=== PATIENT | female | born 1960 | race Hispanic/Latino ===

== ENCOUNTER 2018-12-02 20:50 | Observation (INO) | payer SELFPAY ==
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
[2018-12-02 21:58] LABS: Basophils % (Auto) 0.4 % (0.0-1.8); Eosinophils # (Auto) 0.1 K/mm3 (0.0-0.4); Eosinophils % (Auto) 0.7 % (0.0-4.3); Hematocrit 42.4 % (30.3-42.9); Hemoglobin 14.7 gm/dl (10.1-14.3); Lymphocytes # (Auto) 1.6 K/mm3 (1.2-5.4); Lymphocytes % (Auto) 14.8 % (13.4-35.0); Mean Corpuscular HGB Conc 35 % (30-34); Mean Corpuscular Volume 91 fl (79-97); Monocytes # (Auto) 0.7 K/mm3 (0.0-0.8); Platelet Count 389 K/mm3 (140-440); Red Blood Count 4.66 M/mm3 (3.65-5.03); Red Cell Distribution Width 13.2 % (13.2-15.2)
[2018-12-02 22:15] LABS: Alanine Aminotransferase 20 units/L (7-56); Albumin 4.5 g/dL (3.9-5); BUN/Creatinine Ratio 16; Blood Urea Nitrogen 11 mg/dL (7-17); Calcium 9.6 mg/dL (8.4-10.2); Hemolysis Index 10
--- NOTE | 2018-12-02 23:25 | Cat Scan Report ---
PROCEDURE: CT ABDOMEN PELVIS WO CON TECHNIQUE: Computerized axial tomography of the abdomen and pelvis was performed without intravenous contrast. This study is performed without intravascular contrast material and its sensitivity for ab dominal and pelvic pathology, including neoplasms, inflammation, abscess, free fluid, thrombosis, art erial dissection and infarction, is reduced compared with a contrast enhanced study. CT DOSE LENGTH PRODUCT: 1145 mGycm HISTORY: diffuse abdominal pain, r/o obstruction COMPARISONS: None . FINDINGS: Visualized lower thorax: No significant abnormality. Liver: Normal size and attenuation. Spleen: Normal size and attenuation. Gallbladder and biliary system: Normal. Pancreas: Normal. Adrenals: There is a 8 mm area of hypoattenuation on the left adrenal gland, adenoma is suspected. Kidneys: There is an area of hypoattenuation off the posterior left renal cortex, a complicated cyst in this region is suspected. This area is not fully evaluated. No hydronephrosis is seen.. GI tract: The stomach is normal. A small hiatal hernia is identified. Small bowel has normal caliber without obstruction. Cecum and appendix are normal. There is moderate fecal debris throughout the co silas. There is bowel wall thickening with diverticular change and streaking of the mesenteric fat in t he region of the sigmoid colon. Diverticulitis is noted. Underlying pathology in this area is not com pletely excluded. Recheck study after completing therapy would be warranted. No formed abscess or shayan e air is seen. No evidence of bowel obstruction. . Lymph nodes and mesentery: Normal. Vasculature: Normal.. Bladder: Normal. Reproductive organs: No pelvic masses. Peritoneum: Minimal fluid in the lower pelvis.. Musculoskeletal structures: No significant abnormality. Other: None. IMPRESSION: Moderate diverticulitis of the sigmoid colon. No complication at this time. Recheck stud y after completing therapy may be appropriate as discussed. There is no evidence of intestinal or urinary tract obstruction. The appendix is normal. Complicated 1 cm cyst off the posterior left renal cortex is suspected. A 8 mm left adrenal adenoma i s suspected. Minimal fluid in the lower pelvis. No pelvic masses. . This document is electronically signed by Leila Gilman DO., December 02 2018 11:23:43 PM ET
[2018-12-03] MEDS ORDERED: ZOFRAN IV ONE (01:15)
[2018-12-03] MEDS ORDERED: MORPHINE IV ONE (01:15)
[2018-12-03] MEDS ORDERED: ZOSYN/NS 4.5GM/100ML 4.5 GM/100 ML VIAL IV ONE (01:15)
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
[2018-12-03 02:40] LABS: Bacteria,Urine 3+ /HPF (Negative); Bilirubin,Urine NEG (Negative); Blood,Urine NEG (Negative); Color,Urine Amber (Yellow); Hyaline Casts,Urine 4 /LPF; Mucus,Urine 1+ /HPF; Protein,Urine <15 mg/dL mg/dL (Negative)
[2018-12-03] MEDS ORDERED: PERCOCET 5/325 PO PRN (02:40)
[2018-12-03] MEDS ORDERED: SODIUM CHLORIDE FLUSH SYRINGE 10 ML IV PRN (02:40)
[2018-12-03] MEDS ORDERED: TYLENOL PO PRN (02:40)
[2018-12-03] MEDS ORDERED: PHENERGAN PR PRN (02:40)
[2018-12-03] MEDS ORDERED: APRESOLINE IV PRN (02:43)
--- NOTE | 2018-12-03 03:38 | History and Physical Report ---
History of Present Illness Date of examination: 12/03/18 Date of admission: 12/03/18 Chief complaint: Generalized abdominal pain History of present illness: Patient is a 58-year-old female with history of atrial fibrillation and hypertension who presented to the ED on account of 2 days history of generalized abdominal pain. She described it as sharp in character, nonradiating, rated 10 over 10 and constant in duration. No known aggravating or relieving factors. She has associated nausea with vomiting, constipation, chills without fever, intermittent chest pain and dry cough. She denies palpitation, diaphoresis, leg swelling, orthopnea, PND, sore throat, runny nose or congestion. No headaches, lightheadedness, syncope or loss of consciousness. Her last colonoscopy was in 2014 which was normal Past History Past Medical History: GERD, hypertension, hyperlipidemia, hypothyroidism, other (atrial fibrillation) Past Surgical History: Other (lower back surgery) Social history: other (patient is an ex-cigarette smoker. She smoked for 30 years but quit 4 months ago. She admits to occasional alcohol use but denies illicit drug use) Family history: other (reviewed and noncontributory) Medications and Allergies Allergies Allergy/AdvReac Type Severity Reaction Status Date / Time IV contrast Allergy Anaphylaxis Uncoded 12/02/18 21:21 steroids Allergy Unknown Uncoded 12/02/18 21:21 Active Meds: Active Medications Acetaminophen (Tylenol) 650 mg PO Q4H PRN PRN Reason: Pain MILD(1-3)/Fever >100.5/RUFFIN Famotidine (Pepcid) 20 mg IV BID GREGORIO Hydralazine HCl (Apresoline) 20 mg IV Q4H PRN PRN Reason: Blood Pressure Hydromorphone HCl (Dilaudid) 1 mg IV Q3H PRN PRN Reason: Pain , Severe (7-10) Levofloxacin/Dextrose (Levaquin 750mg/150ml) 750 mg in 150 mls @ 100 mls/hr IV Q24HR GREGORIO; Protocol Metronidazole (Flagyl 500 Mg/100 Ml) 500 mg in 100 mls @ 100 mls/hr IV Q8HR GREGORIO; Protocol Ondansetron HCl (Zofran) 4 mg IV Q6H PRN PRN Reason: Nausea And Vomiting Oxycodone/Acetaminophen (Percocet 5/325) 1 tab PO Q4H PRN PRN Reason: Pain, Moderate (4-6) Promethazine HCl (Phenergan) 25 mg MT Q6H PRN PRN Reason: N/V IF NPO AND NO IV ACCESS Sodium Chloride (Sodium Chloride Flush Syringe 10 Ml) 10 ml IV BID GREGORIO Sodium Chloride (Sodium Chloride Flush Syringe 10 Ml) 10 ml IV PRN PRN PRN Reason: LINE FLUSH Zolpidem Tartrate (Ambien) 5 mg PO QHS PRN PRN Reason: Insomnia Review of Systems All systems: negative (except as documented in the HPI, all other systems were reviewed and negative) Exam - Constitutional Vitals: Temp Pulse Resp BP Pulse Ox 97.7 F 87 16 163/98 93 12/03/18 00:29 12/03/18 02:50 12/03/18 02:50 12/03/18 02:50 12/03/18 02:50 General appearance: Present: no acute distress, well-nourished - EENT Eyes: Present: PERRL, EOM intact ENT: hearing intact, clear oral mucosa - Neck Neck: Present: supple, normal ROM - Respiratory Respiratory effort: normal Respiratory: bilateral: CTA - Cardiovascular Rhythm: regular Heart Sounds: Present: S1 & S2. Absent: rub, click - Extremities Extremities: No edema Peripheral Pulses: within normal limits - Abdominal General gastrointestinal: Present: soft, tender (generalized), non-distended, normal bowel sounds Female genitourinary: Present: deferred - Integumentary Integumentary: Present: clear, warm, dry - Musculoskeletal Musculoskeletal: gait normal, strength equal bilaterally - Psychiatric Psychiatric: appropriate mood/affect, intact judgment & insight - Neurologic Neurologic: CNII-XII intact, moves all extremities Results - Labs CBC & Chem 7: 12/02/18 21:38 12/02/18 21:38 Labs: Laboratory Last Values WBC 11.0 K/mm3 (4.5-11.0) 12/02/18 21:38 RBC 4.66 M/mm3 (3.65-5.03) 12/02/18 21:38 Hgb 14.7 gm/dl (10.1-14.3) H 12/02/18 21:38 Hct 42.4 % (30.3-42.9) 12/02/18 21:38 MCV 91 fl (79-97) 12/02/18 21:38 MCH 32 pg (28-32) 12/02/18 21:38 MCHC 35 % (30-34) H 12/02/18 21:38 RDW 13.2 % (13.2-15.2) 12/02/18 21:38 Plt Count 389 K/mm3 (140-440) 12/02/18 21:38 Lymph % (Auto) 14.8 % (13.4-35.0) 12/02/18 21:38 [place] % (Auto) 6.0 % (0.0-7.3) 12/02/18 21:38 Eos % (Auto) 0.7 % (0.0-4.3) 12/02/18 21:38 Baso % (Auto) 0.4 % (0.0-1.8) 12/02/18 21:38 Lymph # 1.6 K/mm3 (1.2-5.4) 12/02/18 21:38 [place] # 0.7 K/mm3 (0.0-0.8) 12/02/18 21:38 Eos # 0.1 K/mm3 (0.0-0.4) 12/02/18 21:38 Baso # 0.0 K/mm3 (0.0-0.1) 12/02/18 21:38 Seg Neutrophils % 78.1 % (40.0-70.0) H 12/02/18 21:38 Seg Neutrophils # 8.5 K/mm3 (1.8-7.7) H 12/02/18 21:38 Sodium 142 mmol/L (137-145) 12/02/18 21:38 Potassium 4.1 mmol/L (3.6-5.0) 12/02/18 21:38 Chloride 105.2 mmol/L (98-107) 12/02/18 21:38 Carbon Dioxide 25 mmol/L (22-30) 12/02/18 21:38 Anion Gap 16 mmol/L 12/02/18 21:38 BUN 11 mg/dL (7-17) 12/02/18 21:38 Creatinine 0.7 mg/dL (0.7-1.2) 12/02/18 21:38 Estimated GFR > 60 ml/min 12/02/18 21:38 BUN/Creatinine Ratio 16 % 12/02/18 21:38 Glucose 155 mg/dL (65-100) H 12/02/18 21:38 Calcium 9.6 mg/dL (8.4-10.2) 12/02/18 21:38 Total Bilirubin 0.40 mg/dL (0.1-1.2) 12/02/18 21:38 AST 17 units/L (5-40) 12/02/18 21:38 ALT 20 units/L (7-56) 12/02/18 21:38 Alkaline Phosphatase 93 units/L (35-129) 12/02/18 21:38 Total Protein 7.4 g/dL (6.3-8.2) 12/02/18 21:38 Albumin 4.5 g/dL (3.9-5) 12/02/18 21:38 Albumin/Globulin Ratio 1.6 % 12/02/18 21:38 Urine Color [place] (Yellow) 12/03/18 01:57 Urine Turbidity Cloudy (Clear) 12/03/18 01:57 Urine pH 7.0 (5.0-7.0) 12/03/18 01:57 Ur Specific [place] 1.018 (1.003-1.030) 12/03/18 01:57 Urine Protein <15 mg/dl mg/dL (Negative) 12/03/18 01:57 Urine Glucose (UA) Neg mg/dL (Negative) 12/03/18 01:57 Urine Ketones Tr mg/dL (Negative) 12/03/18 01:57 Urine Blood Neg (Negative) 12/03/18 01:57 Urine Nitrite Neg (Negative) 12/03/18 01:57 Urine Bilirubin Neg (Negative) 12/03/18 01:57 Urine Urobilinogen 4.0 mg/dL (<2.0) 12/03/18 01:57 Ur Leukocyte Esterase Neg (Negative) 12/03/18 01:57 Urine WBC (Auto) 8.0 /HPF (0.0-6.0) H 12/03/18 01:57 Urine RBC (Auto) 1.0 /HPF (0.0-6.0) 12/03/18 01:57 U Epithel Cells (Auto) 1.0 /HPF (0-13.0) 12/03/18 01:57 Urine Bacteria (Auto) 3+ /HPF (Negative) 12/03/18 01:57 Urine WBC Clumps 2+ /HPF 12/03/18 01:57 Hyaline Casts 4 /LPF 12/03/18 01:57 Urine Mucus 1+ /HPF 12/03/18 01:57 Urine Yeast (Budding) 3+ /HPF 12/03/18 01:57 Assessment and Plan Assessment and plan: Acute sigmoid diverticulitis without complications -CT abdomen/pelvis showed moderate diverticulitis of the sigmoid colon -On nothing by mouth and IV antibiotics with levofloxacin and Flagyl UTI -On IV antibiotics -Urine culture pending Hypertension -Uncontrolled -On antihypertensives Hyperglycemia -Hemoglobin A1c level pending History of Atrial fibrillation -Heart rate controlled -Resume home oral anticoagulation when available Hypothyroidism -Resume home medication when available Hyperlipidemia -Resume home medication when available GERD -On IV famotidine Disposition: For discharge when medically stable Time spent: 38 minutes
[2018-12-03] MEDS: PEPCID IV SCH ×3 (04:44→21:12)
[2018-12-03] MEDS: ZOFRAN IV PRN ×2 (05:07→11:48)
[2018-12-03] MEDS: FLAGYL 500 MG/100 ML 500 MG/100 ML BAG IV SCH ×3 (05:08→21:12)
[2018-12-03] MEDS: LEVAQUIN 750MG/150ML 750 MG/150 ML BAG IV SCH (10:53)
[2018-12-03] MEDS: SODIUM CHLORIDE FLUSH SYRINGE 10 ML IV SCH ×2 (10:53→21:12)
[2018-12-03] MEDS: DILAUDID IV PRN (11:48)
[2018-12-03] MEDS ORDERED: AFLURIA QUAD 2018-2019 SYRINGE IM ONE (12:00)
--- NOTE | 2018-12-03 17:35 | Progress Note ---
Assessment and Plan Assessment and plan: Patient is a 58 yo woman with a history of GERD, hypertension, hyperlipidemia, hypothyroidism, and atrial fibrillation who presented with abdominal pains. * CT abd/pelvis without contrast IMPRESSION: Moderate diverticulitis of the sigmoid colon. No complication at this time. Recheck study after completing therapy may be appropriate as discussed. There is no evidence of intestinal or urinary tract obstruction. The appendix is normal. Complicated 1 cm cyst off the posterior left renal cortex is suspected. A 8 mm left adrenal adenoma is suspected. Minimal fluid in the lower pelvis. No pelvic masses Acute sigmoid diverticulitis without complications -CT abdomen/pelvis showed moderate diverticulitis of the sigmoid colon -On nothing by mouth and IV antibiotics with levofloxacin and Flagyl UTI -On IV antibiotics -Urine culture pending Hypertension -Uncontrolled -On antihypertensives Hyperglycemia -Hemoglobin A1c 5.3 History of Atrial fibrillation -Heart rate controlled -Resume home oral anticoagulation when available Hypothyroidism -Resume home medication when available Hyperlipidemia -Resume home medication when available GERD -On IV famotidine Disposition: continue inpatient care, For discharge when medically stable History Interval history: Patient was seen and examined. Follow-up on current diagnosis of abd pains. Overnight uneventful. Patient denies any chest pain, shortness breath, nausea/vomiting or severe headaches. Imaging, nursing note, chart, labs and old chart reviewed. Discussed with patient. Hospitalist Physical - Physical exam Narrative exam: Gen: WDWN, NAD, Awake, Alert, Orientated HEENT: NCAT, EOMI, PERRL, OP Clear Neck: supple, no adenopathy, no thyromegaly, no JVD CVS/Heart: RRR, normal S1S2, pulses present bilaterally Chest/Lungs: CTA B, Symmetrical chest expansion, good air entry bilaterally GI/Abdomen: soft, diffuse tenderness, good bowel sounds, no guarding or rebound /Bladder: +suprapubic tenderness, no CVA or paraspinal tenderness Extermity/Skin: no c/c/e, no obvious rash MSK: FROM x 4 Neuro: CN 2-12 grossly intact, no new focal deficits Psych: calm - Constitutional Vitals: Temp Pulse Resp BP Pulse Ox 97.8 F 78 15 153/87 96 12/03/18 15:40 12/03/18 15:40 12/03/18 15:40 12/03/18 15:40 12/03/18 15:40 General appearance: Present: no acute distress, well-nourished Results - Labs CBC & Chem 7: 12/02/18 21:38 12/02/18 21:38 Labs: Laboratory Last Values WBC 11.0 K/mm3 (4.5-11.0) 12/02/18 21:38 RBC 4.66 M/mm3 (3.65-5.03) 12/02/18 21:38 Hgb 14.7 gm/dl (10.1-14.3) H 12/02/18 21:38 Hct 42.4 % (30.3-42.9) 12/02/18 21:38 MCV 91 fl (79-97) 12/02/18 21:38 MCH 32 pg (28-32) 12/02/18 21:38 MCHC 35 % (30-34) H 12/02/18 21:38 RDW 13.2 % (13.2-15.2) 12/02/18 21:38 Plt Count 389 K/mm3 (140-440) 12/02/18 21:38 Lymph % (Auto) 14.8 % (13.4-35.0) 12/02/18 21:38 [place] % (Auto) 6.0 % (0.0-7.3) 12/02/18 21:38 Eos % (Auto) 0.7 % (0.0-4.3) 12/02/18 21:38 Baso % (Auto) 0.4 % (0.0-1.8) 12/02/18 21:38 Lymph # 1.6 K/mm3 (1.2-5.4) 12/02/18 21:38 [place] # 0.7 K/mm3 (0.0-0.8) 12/02/18 21:38 Eos # 0.1 K/mm3 (0.0-0.4) 12/02/18 21:38 Baso # 0.0 K/mm3 (0.0-0.1) 12/02/18 21:38 Seg Neutrophils % 78.1 % (40.0-70.0) H 12/02/18 21:38 Seg Neutrophils # 8.5 K/mm3 (1.8-7.7) H 12/02/18 21:38 Sodium 142 mmol/L (137-145) 12/02/18 21:38 Potassium 4.1 mmol/L (3.6-5.0) 12/02/18 21:38 Chloride 105.2 mmol/L (98-107) 12/02/18 21:38 Carbon Dioxide 25 mmol/L (22-30) 12/02/18 21:38 Anion Gap 16 mmol/L 12/02/18 21:38 BUN 11 mg/dL (7-17) 12/02/18 21:38 Creatinine 0.7 mg/dL (0.7-1.2) 12/02/18 21:38 Estimated GFR > 60 ml/min 12/02/18 21:38 BUN/Creatinine Ratio 16 % 12/02/18 21:38 Glucose 155 mg/dL (65-100) H 12/02/18 21:38 Hemoglobin A1c 5.3 % (4-6) 12/03/18 05:00 Calcium 9.6 mg/dL (8.4-10.2) 12/02/18 21:38 Total Bilirubin 0.40 mg/dL (0.1-1.2) 12/02/18 21:38 AST 17 units/L (5-40) 12/02/18 21:38 ALT 20 units/L (7-56) 12/02/18 21:38 Alkaline Phosphatase 93 units/L (35-129) 12/02/18 21:38 Total Protein 7.4 g/dL (6.3-8.2) 12/02/18 21:38 Albumin 4.5 g/dL (3.9-5) 12/02/18 21:38 Albumin/Globulin Ratio 1.6 % 12/02/18 21:38 Urine Color [place] (Yellow) 12/03/18 01:57 Urine Turbidity Cloudy (Clear) 12/03/18 01:57 Urine pH 7.0 (5.0-7.0) 12/03/18 01:57 Ur Specific [place] 1.018 (1.003-1.030) 12/03/18 01:57 Urine Protein <15 mg/dl mg/dL (Negative) 12/03/18 01:57 Urine Glucose (UA) Neg mg/dL (Negative) 12/03/18 01:57 Urine Ketones Tr mg/dL (Negative) 12/03/18 01:57 Urine Blood Neg (Negative) 12/03/18 01:57 Urine Nitrite Neg (Negative) 12/03/18 01:57 Urine Bilirubin Neg (Negative) 12/03/18 01:57 Urine Urobilinogen 4.0 mg/dL (<2.0) 12/03/18 01:57 Ur Leukocyte Esterase Neg (Negative) 12/03/18 01:57 Urine WBC (Auto) 8.0 /HPF (0.0-6.0) H 12/03/18 01:57 Urine RBC (Auto) 1.0 /HPF (0.0-6.0) 12/03/18 01:57 U Epithel Cells (Auto) 1.0 /HPF (0-13.0) 12/03/18 01:57 Urine Bacteria (Auto) 3+ /HPF (Negative) 12/03/18 01:57 Urine WBC Clumps 2+ /HPF 12/03/18 01:57 Hyaline Casts 4 /LPF 12/03/18 01:57 Urine Mucus 1+ /HPF 12/03/18 01:57 Urine Yeast (Budding) 3+ /HPF 12/03/18 01:57 Active Medications - Current Medications Current Medications: Generic Name Dose Route Start Last Admin Trade Name Freq PRN Reason Stop Dose Admin Acetaminophen 650 mg 12/03/18 02:40 Tylenol PO Q4H PRN Pain MILD(1-3)/Fever >100.5/RUFFIN Famotidine 20 mg 12/03/18 03:00 12/03/18 10:53 Pepcid IV 20 mg BID GREGORIO Administration Hydralazine HCl 20 mg 12/03/18 02:43 12/03/18 05:07 Apresoline IV 20 mg Q4H PRN Administration Blood Pressure Hydromorphone HCl 1 mg 12/03/18 02:40 12/03/18 11:48 Dilaudid IV 1 mg Q3H PRN Administration Pain , Severe (7-10) Levofloxacin/Dextrose 750 mg in 150 mls @ 100 mls/hr 12/03/18 10:00 12/03/18 10:53 Levaquin 750mg/150ml IV 100 mls/hr Q24HR GREGORIO Administration Protocol Metronidazole 500 mg in 100 mls @ 100 mls/hr 12/03/18 06:00 12/03/18 14:19 Flagyl 500 Mg/100 Ml IV 100 mls/hr Q8HR GREGORIO Administration Protocol Ondansetron HCl 4 mg 12/03/18 02:40 12/03/18 11:48 Zofran IV 4 mg Q6H PRN Administration Nausea And Vomiting Oxycodone/Acetaminophen 1 tab 12/03/18 02:40 Percocet 5/325 PO Q4H PRN Pain, Moderate (4-6) Promethazine HCl 25 mg 12/03/18 02:40 Phenergan [place] Q6H PRN N/V IF NPO AND NO IV ACCESS Sodium Chloride 10 ml 12/03/18 10:00 12/03/18 10:53 Sodium Chloride Flush Syringe 10 Ml IV 10 ml BID GREGORIO Administration Sodium Chloride 10 ml 12/03/18 02:40 Sodium Chloride Flush Syringe 10 Ml IV PRN PRN LINE FLUSH Zolpidem Tartrate 5 mg 12/03/18 02:40 Ambien PO QHS PRN Insomnia
[2018-12-03] MEDS: AMBIEN PO PRN (21:15)
[2018-12-04] MEDS ORDERED: LOPRESSOR IV ONE (00:34)
[2018-12-04] MEDS ORDERED: CARDIZEM IV ONE ×2 (04:23→10:30)
[2018-12-04] MEDS: FLAGYL 500 MG/100 ML 500 MG/100 ML BAG IV SCH ×3 (05:09→21:59)
[2018-12-04 05:37] LABS: Basophils # (Auto) 0.1 K/mm3 (0.0-0.1); Basophils % (Auto) 1.1 % (0.0-1.8); Eosinophils # (Auto) 0.2 K/mm3 (0.0-0.4); Eosinophils % (Auto) 2.4 % (0.0-4.3); Hematocrit 41.8 % (30.3-42.9); Hemoglobin 14.3 gm/dl (10.1-14.3); Lymphocytes # (Auto) 1.9 K/mm3 (1.2-5.4); Lymphocytes % (Auto) 24.2 % (13.4-35.0); Mean Corpuscular HGB Conc 34 % (30-34); Mean Corpuscular Volume 92 fl (79-97); Monocytes # (Auto) 0.7 K/mm3 (0.0-0.8); Monocytes % (Auto) 8.6 % (0.0-7.3); Platelet Count 330 K/mm3 (140-440); Red Blood Count 4.57 M/mm3 (3.65-5.03); Red Cell Distribution Width 13.1 % (13.2-15.2)
[2018-12-04] MEDS: CARDIZEM 100 MG in D5W 80 ML IV SCH ×2 (05:49→19:03)
[2018-12-04] MEDS: DILAUDID IV PRN (05:49)
[2018-12-04 05:51] LABS: BUN/Creatinine Ratio 10; Blood Urea Nitrogen 8 mg/dL (7-17); Calcium 9.1 mg/dL (8.4-10.2); Hemolysis Index 6
[2018-12-04] MEDS ORDERED: NON-FORMULARY (Clonazepam [Clonazepam] 1 MG) PO PRN (08:08)
--- NOTE | 2018-12-04 08:14 | Progress Note ---
Assessment and Plan Assessment and plan: Patient is a 58 yo woman with a history of GERD, hypertension, hyperlipidemia, hypothyroidism, and atrial fibrillation who presented with abdominal pains. * CT abd/pelvis without contrast IMPRESSION: Moderate diverticulitis of the sigmoid colon. No complication at this time. Recheck study after completing therapy may be appropriate as discussed. There is no evidence of intestinal or urinary tract obstruction. The appendix is normal. Complicated 1 cm cyst off the posterior left renal cortex is suspected. A 8 mm left adrenal adenoma is suspected. Minimal fluid in the lower pelvis. No pelvic masses Acute sigmoid diverticulitis without complications -CT abdomen/pelvis showed moderate diverticulitis of the sigmoid colon -start clear liquid diet -IV antibiotics with levofloxacin and Flagyl UTI -On IV antibiotics -follow Urine culture pending Hypertension -Uncontrolled -On antihypertensives Hyperglycemia -Hemoglobin A1c 5.3 Atrial fibrillation with RVR -consult Cardiology, restart oral bblocker -wean off iv Cardizem drip -Heart rate controlled -Resume home oral anticoagulation when available Hypothyroidism -Resume home medication when available Hyperlipidemia -Resume home medication when available GERD -On IV famotidine Disposition: continue inpatient care, For discharge when medically stable History Interval history: Patient was seen and examined. Follow-up on current diagnosis of abd pains with Diverticulitis. Overnight eventful with RVR from chronic afib, iv cardizem drip started. Patient denies any chest pain, shortness breath, nausea/vomiting or severe headaches. Imaging, nursing note, chart, labs and old chart reviewed. Discussed with patient. Hospitalist Physical - Physical exam Narrative exam: Gen: WDWN, NAD, Awake, Alert, Orientated HEENT: NCAT, EOMI, PERRL, OP Clear Neck: supple, no adenopathy, no thyromegaly, no JVD CVS/Heart: irregular irregular, normal S1S2, pulses present bilaterally Chest/Lungs: CTA B, Symmetrical chest expansion, good air entry bilaterally GI/Abdomen: soft, diffuse tenderness, good bowel sounds, no guarding or rebound /Bladder: +suprapubic tenderness, no CVA or paraspinal tenderness Extermity/Skin: no c/c/e, no obvious rash MSK: FROM x 4 Neuro: CN 2-12 grossly intact, no new focal deficits Psych: calm - Constitutional Vitals: Temp Pulse Resp BP Pulse Ox 98.5 F 107 H 16 111/88 94 12/04/18 07:08 12/04/18 07:08 12/04/18 07:08 12/04/18 07:08 12/04/18 07:08 General appearance: Present: no acute distress, well-nourished Results - Labs CBC & Chem 7: 12/04/18 04:40 12/04/18 04:40 Labs: Laboratory Last Values WBC 7.8 K/mm3 (4.5-11.0) 12/04/18 04:40 RBC 4.57 M/mm3 (3.65-5.03) 12/04/18 04:40 Hgb 14.3 gm/dl (10.1-14.3) 12/04/18 04:40 Hct 41.8 % (30.3-42.9) 12/04/18 04:40 MCV 92 fl (79-97) 12/04/18 04:40 MCH 31 pg (28-32) 12/04/18 04:40 MCHC 34 % (30-34) 12/04/18 04:40 RDW 13.1 % (13.2-15.2) L 12/04/18 04:40 Plt Count 330 K/mm3 (140-440) 12/04/18 04:40 Lymph % (Auto) 24.2 % (13.4-35.0) 12/04/18 04:40 [place] % (Auto) 8.6 % (0.0-7.3) H 12/04/18 04:40 Eos % (Auto) 2.4 % (0.0-4.3) 12/04/18 04:40 Baso % (Auto) 1.1 % (0.0-1.8) 12/04/18 04:40 Lymph # 1.9 K/mm3 (1.2-5.4) 12/04/18 04:40 [place] # 0.7 K/mm3 (0.0-0.8) 12/04/18 04:40 Eos # 0.2 K/mm3 (0.0-0.4) 12/04/18 04:40 Baso # 0.1 K/mm3 (0.0-0.1) 12/04/18 04:40 Seg Neutrophils % 63.7 % (40.0-70.0) 12/04/18 04:40 Seg Neutrophils # 5.0 K/mm3 (1.8-7.7) 12/04/18 04:40 Sodium 144 mmol/L (137-145) 12/04/18 04:40 Potassium 3.9 mmol/L (3.6-5.0) 12/04/18 04:40 Chloride 106.8 mmol/L (98-107) 12/04/18 04:40 Carbon Dioxide 24 mmol/L (22-30) 12/04/18 04:40 Anion Gap 17 mmol/L 12/04/18 04:40 BUN 8 mg/dL (7-17) 12/04/18 04:40 Creatinine 0.8 mg/dL (0.7-1.2) 12/04/18 04:40 Estimated GFR > 60 ml/min 12/04/18 04:40 BUN/Creatinine Ratio 10 % 12/04/18 04:40 Glucose 100 mg/dL (65-100) 12/04/18 04:40 Hemoglobin A1c 5.3 % (4-6) 12/03/18 05:00 Calcium 9.1 mg/dL (8.4-10.2) 12/04/18 04:40 Magnesium 2.30 mg/dL (1.7-2.3) 12/04/18 04:40 Total Bilirubin 0.40 mg/dL (0.1-1.2) 12/02/18 21:38 AST 17 units/L (5-40) 12/02/18 21:38 ALT 20 units/L (7-56) 12/02/18 21:38 Alkaline Phosphatase 93 units/L (35-129) 12/02/18 21:38 Total Protein 7.4 g/dL (6.3-8.2) 12/02/18 21:38 Albumin 4.5 g/dL (3.9-5) 12/02/18 21:38 Albumin/Globulin Ratio 1.6 % 12/02/18 21:38 Urine Color [place] (Yellow) 12/03/18 01:57 Urine Turbidity Cloudy (Clear) 12/03/18 01:57 Urine pH 7.0 (5.0-7.0) 12/03/18 01:57 Ur Specific [place] 1.018 (1.003-1.030) 12/03/18 01:57 Urine Protein <15 mg/dl mg/dL (Negative) 12/03/18 01:57 Urine Glucose (UA) Neg mg/dL (Negative) 12/03/18 01:57 Urine Ketones Tr mg/dL (Negative) 12/03/18 01:57 Urine Blood Neg (Negative) 12/03/18 01:57 Urine Nitrite Neg (Negative) 12/03/18 01:57 Urine Bilirubin Neg (Negative) 12/03/18 01:57 Urine Urobilinogen 4.0 mg/dL (<2.0) 12/03/18 01:57 Ur Leukocyte Esterase Neg (Negative) 12/03/18 01:57 Urine WBC (Auto) 8.0 /HPF (0.0-6.0) H 12/03/18 01:57 Urine RBC (Auto) 1.0 /HPF (0.0-6.0) 12/03/18 01:57 U Epithel Cells (Auto) 1.0 /HPF (0-13.0) 12/03/18 01:57 Urine Bacteria (Auto) 3+ /HPF (Negative) 12/03/18 01:57 Urine WBC Clumps 2+ /HPF 12/03/18 01:57 Hyaline Casts 4 /LPF 12/03/18 01:57 Urine Mucus 1+ /HPF 12/03/18 01:57 Urine Yeast (Budding) 3+ /HPF 12/03/18 01:57 Active Medications - Current Medications Current Medications: Generic Name Dose Route Start Last Admin Trade Name Freq PRN Reason Stop Dose Admin Acetaminophen 650 mg 12/03/18 02:40 Tylenol PO Q4H PRN Pain MILD(1-3)/Fever >100.5/RUFFIN Apixaban 5 mg 12/04/18 10:00 Eliquis PO BID GREGORIO Protocol Famotidine 20 mg 12/03/18 03:00 12/03/18 21:12 Pepcid IV 20 mg BID GREGORIO Administration Hydralazine HCl 20 mg 12/03/18 02:43 12/03/18 05:07 Apresoline IV 20 mg Q4H PRN Administration Blood Pressure Hydromorphone HCl 1 mg 12/03/18 02:40 12/04/18 05:49 Dilaudid IV 1 mg Q3H PRN Administration Pain , Severe (7-10) Levofloxacin/Dextrose 750 mg in 150 mls @ 100 mls/hr 12/03/18 10:00 12/03/18 10:53 Levaquin 750mg/150ml IV 100 mls/hr Q24HR GREGORIO Administration Protocol Metronidazole 500 mg in 100 mls @ 100 mls/hr 12/03/18 06:00 12/04/18 05:09 Flagyl 500 Mg/100 Ml IV 100 mls/hr Q8HR GREGORIO Administration Protocol Diltiazem HCl 100 mg/ Dextrose 100 mls @ 5 mls/hr 12/04/18 05:00 12/04/18 05:49 IV 5 mg/hr DIRECT GREGORIO 5 mls/hr Administration Protocol 5 MG/HR Metoprolol Tartrate 25 mg 12/04/18 10:00 Lopressor PO BID [facility] Miscellaneous Medication 1 mg 12/04/18 08:08 Clonazepam [Clonazepam] PO Q6HR PRN Anxiety Ondansetron HCl 4 mg 12/03/18 02:40 12/03/18 11:48 Zofran IV 4 mg Q6H PRN Administration Nausea And Vomiting Oxycodone/Acetaminophen 1 tab 12/03/18 02:40 Percocet 5/325 PO Q4H PRN Pain, Moderate (4-6) Promethazine HCl 25 mg 12/03/18 02:40 Phenergan [place] Q6H PRN N/V IF NPO AND NO IV ACCESS Sodium Chloride 10 ml 12/03/18 10:00 12/03/18 21:12 Sodium Chloride Flush Syringe 10 Ml IV 10 ml BID GREGORIO Administration Sodium Chloride 10 ml 12/03/18 02:40 Sodium Chloride Flush Syringe 10 Ml IV PRN PRN LINE FLUSH Thyroid 60 mg 12/04/18 10:00 Thyroid,Pork PO DAILY GREGORIO Zolpidem Tartrate 5 mg 12/03/18 02:40 12/03/18 21:15 Ambien PO 5 mg QHS PRN Administration Insomnia
[2018-12-04] MEDS ORDERED: THYROID PORK PO SCH (10:00)
[2018-12-04] MEDS ORDERED: LOPRESSOR PO SCH (10:00)
[2018-12-04] MEDS: SODIUM CHLORIDE FLUSH SYRINGE 10 ML IV SCH ×2 (10:01→21:59)
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
[2018-12-04] MEDS: LEVAQUIN 750MG/150ML 750 MG/150 ML BAG IV SCH (12:52)
[2018-12-04] MEDS: PEPCID IV SCH ×2 (12:53→21:59)
[2018-12-04] MEDS: ELIQUIS PO SCH ×2 (12:53→22:00)
[2018-12-04] MEDS: LOPRESSOR PO SCH ×2 (15:00→21:59)
[2018-12-04] MEDS: AMBIEN PO PRN (22:47)
[2018-12-05] MEDS: THYROID PORK PO SCH ×2 (05:13→10:00)
[2018-12-05] MEDS: FLAGYL 500 MG/100 ML 500 MG/100 ML BAG IV SCH ×2 (05:13→14:48)
[2018-12-05] MEDS: PEPCID IV SCH (09:19)
[2018-12-05] MEDS: ELIQUIS PO SCH (09:19)
[2018-12-05] MEDS: LOPRESSOR PO SCH ×2 (09:20→14:49)
[2018-12-05] MEDS: SODIUM CHLORIDE FLUSH SYRINGE 10 ML IV SCH (09:22)
[2018-12-05] MEDS: LEVAQUIN 750MG/150ML 750 MG/150 ML BAG IV SCH (09:23)
--- NOTE | 2018-12-05 10:29 | Discharge Summary ---
Providers - Providers Date of Admission: 12/03/18 02:40 Date of discharge: 12/05/18 Attending physician: CHERIE REYES 12/04/18 08:07 Consult to Physician [CONS] Routine Comment: Consulting Provider: STACY VILLASENOR Physician Instructions: Reason For Exam: afib with rvr Primary care physician: JACQUARD TWINE POLISHER OPERATOR Hospitalization Condition: Stable Hospital course: Patient is a 58 yo woman with a history of GERD, hypertension, hyperlipidemia, hypothyroidism, and atrial fibrillation who presented with abdominal pains. * CT abd/pelvis without contrast IMPRESSION: Moderate diverticulitis of the sigmoid colon. No complication at this time. Recheck study after completing therapy may be appropriate as discussed. There is no evidence of intestinal or urinary tract obstruction. The appendix is normal. Complicated 1 cm cyst off the posterior left renal cortex is suspected. A 8 mm left adrenal adenoma is suspected. Minimal fluid in the lower pelvis. No pelvic masses Acute sigmoid diverticulitis without complications -CT abdomen/pelvis showed moderate diverticulitis of the sigmoid colon -start clear liquid diet -IV antibiotics with levofloxacin and Flagyl UTI -On IV antibiotics -Urine culture negative so far Hypertension -Uncontrolled -On antihypertensives Hyperglycemia -Hemoglobin A1c 5.3 Atrial fibrillation with RVR -consult Cardiology, restart oral bblocker -wean off iv Cardizem drip -Heart rate controlled -Resume home oral anticoagulation when available Hypothyroidism -Resume home medication when available Hyperlipidemia -Resume home medication when available GERD -On IV famotidine Disposition: continue inpatient care, For discharge when heart rate stable and tolerating advance diet Disposition: DC-01 TO HOME OR SELFCARE Time spent for discharge: 32 minutes Core Measure Documentation - Palliative Care Palliative Care/ Comfort Measures: Not Applicable - Core Measures Any of the following diagnoses?: none - VTE Discharge Requirements Deep Vein Thrombosis/Pulmonary Embolism Present on Admission: No Has pt received <5 days of overlap therapy or INR<2.0: No Anticoagulant overlap therapy prescribed at discharge: No Contraindication No Overlap Therapy order at DC: Not Indicated Exam - Physical Exam Narrative exam: Gen: WDWN, NAD, Awake, Alert, Orientated HEENT: NCAT, EOMI, PERRL, OP Clear Neck: supple, no adenopathy, no thyromegaly, no JVD CVS/Heart: irregular irregular, normal S1S2, pulses present bilaterally Chest/Lungs: CTA B, Symmetrical chest expansion, good air entry bilaterally GI/Abdomen: soft, diffuse tenderness, good bowel sounds, no guarding or rebound /Bladder: +suprapubic tenderness, no CVA or paraspinal tenderness Extermity/Skin: no c/c/e, no obvious rash MSK: FROM x 4 Neuro: CN 2-12 grossly intact, no new focal deficits Psych: calm - Constitutional Vitals: Temp Pulse Resp BP Pulse Ox 97.9 F 68 18 130/74 96 12/05/18 08:53 12/05/18 09:20 12/05/18 08:53 12/05/18 09:20 12/05/18 08:53 Plan Activity: other (no strenous activity activity unless cleared by pcp) Diet: low salt Follow up with: OLIVER WOODSEAGLE MD KESHAWN [Referring] - 3-5 Days STACY VILLASENOR MD [Staff Physician] - 7 Days Prescriptions: Zolpidem [Ambien] 5 mg PO QHS PRN #10 tablet PRN Reason: Insomnia Apixaban [Eliquis] 5 mg PO BID #60 tablet Metoprolol Tartrate 25 mg PO TID #90 tablet
--- NOTE | 2018-12-05 10:36 | Progress Note ---
Assessment and Plan Assessment and plan: Patient is a 58 yo woman with a history of GERD, hypertension, hyperlipidemia, hypothyroidism, and atrial fibrillation who presented with abdominal pains. * CT abd/pelvis without contrast IMPRESSION: Moderate diverticulitis of the sigmoid colon. No complication at this time. Recheck study after completing therapy may be appropriate as discussed. There is no evidence of intestinal or urinary tract obstruction. The appendix is normal. Complicated 1 cm cyst off the posterior left renal cortex is suspected. A 8 mm left adrenal adenoma is suspected. Minimal fluid in the lower pelvis. No pelvic masses Acute sigmoid diverticulitis without complications -CT abdomen/pelvis showed moderate diverticulitis of the sigmoid colon -start clear liquid diet -IV antibiotics with levofloxacin and Flagyl UTI -On IV antibiotics -follow Urine culture pending Hypertension -Uncontrolled -On antihypertensives Hyperglycemia -Hemoglobin A1c 5.3 Atrial fibrillation with RVR -consult Cardiology, restart oral bblocker -wean off iv Cardizem drip -Heart rate controlled -Resume home oral anticoagulation when available Hypothyroidism -Resume home medication when available Hyperlipidemia -Resume home medication when available GERD -On IV famotidine Disposition: continue inpatient care, For discharge when medically stable increase metoprolol, wean off cardizem drip and advance diet History Interval history: Patient was seen and examined. Follow-up on current diagnosis of abd pains with Diverticulitis. Overnight eventful with RVR from chronic afib, iv cardizem drip started. Patient denies any chest pain, shortness breath, nausea/vomiting or severe headaches. Imaging, nursing note, chart, labs and old chart reviewed. Discussed with patient. Hospitalist Physical - Physical exam Narrative exam: Gen: WDWN, NAD, Awake, Alert, Orientated HEENT: NCAT, EOMI, PERRL, OP Clear Neck: supple, no adenopathy, no thyromegaly, no JVD CVS/Heart: irregular irregular, normal S1S2, pulses present bilaterally Chest/Lungs: CTA B, Symmetrical chest expansion, good air entry bilaterally GI/Abdomen: soft, diffuse tenderness, good bowel sounds, no guarding or rebound /Bladder: +suprapubic tenderness, no CVA or paraspinal tenderness Extermity/Skin: no c/c/e, no obvious rash MSK: FROM x 4 Neuro: CN 2-12 grossly intact, no new focal deficits Psych: calm - Constitutional Vitals: Temp Pulse Resp BP Pulse Ox 97.9 F 68 18 130/74 96 12/05/18 08:53 12/05/18 09:20 12/05/18 08:53 12/05/18 09:20 12/05/18 08:53 General appearance: Present: no acute distress Results - Labs CBC & Chem 7: 12/04/18 04:40 12/04/18 04:40 Labs: Laboratory Last Values WBC 7.8 K/mm3 (4.5-11.0) 12/04/18 04:40 RBC 4.57 M/mm3 (3.65-5.03) 12/04/18 04:40 Hgb 14.3 gm/dl (10.1-14.3) 12/04/18 04:40 Hct 41.8 % (30.3-42.9) 12/04/18 04:40 MCV 92 fl (79-97) 12/04/18 04:40 MCH 31 pg (28-32) 12/04/18 04:40 MCHC 34 % (30-34) 12/04/18 04:40 RDW 13.1 % (13.2-15.2) L 12/04/18 04:40 Plt Count 330 K/mm3 (140-440) 12/04/18 04:40 Lymph % (Auto) 24.2 % (13.4-35.0) 12/04/18 04:40 [place] % (Auto) 8.6 % (0.0-7.3) H 12/04/18 04:40 Eos % (Auto) 2.4 % (0.0-4.3) 12/04/18 04:40 Baso % (Auto) 1.1 % (0.0-1.8) 12/04/18 04:40 Lymph # 1.9 K/mm3 (1.2-5.4) 12/04/18 04:40 [place] # 0.7 K/mm3 (0.0-0.8) 12/04/18 04:40 Eos # 0.2 K/mm3 (0.0-0.4) 12/04/18 04:40 Baso # 0.1 K/mm3 (0.0-0.1) 12/04/18 04:40 Seg Neutrophils % 63.7 % (40.0-70.0) 12/04/18 04:40 Seg Neutrophils # 5.0 K/mm3 (1.8-7.7) 12/04/18 04:40 Sodium 144 mmol/L (137-145) 12/04/18 04:40 Potassium 3.9 mmol/L (3.6-5.0) 12/04/18 04:40 Chloride 106.8 mmol/L (98-107) 12/04/18 04:40 Carbon Dioxide 24 mmol/L (22-30) 12/04/18 04:40 Anion Gap 17 mmol/L 12/04/18 04:40 BUN 8 mg/dL (7-17) 12/04/18 04:40 Creatinine 0.8 mg/dL (0.7-1.2) 12/04/18 04:40 Estimated GFR > 60 ml/min 12/04/18 04:40 BUN/Creatinine Ratio 10 % 12/04/18 04:40 Glucose 100 mg/dL (65-100) 12/04/18 04:40 POC Glucose 86 (70-105) 12/05/18 08:03 Hemoglobin A1c 5.3 % (4-6) 12/03/18 05:00 Calcium 9.1 mg/dL (8.4-10.2) 12/04/18 04:40 Magnesium 2.30 mg/dL (1.7-2.3) 12/04/18 04:40 Total Bilirubin 0.40 mg/dL (0.1-1.2) 12/02/18 21:38 AST 17 units/L (5-40) 12/02/18 21:38 ALT 20 units/L (7-56) 12/02/18 21:38 Alkaline Phosphatase 93 units/L (35-129) 12/02/18 21:38 Total Protein 7.4 g/dL (6.3-8.2) 12/02/18 21:38 Albumin 4.5 g/dL (3.9-5) 12/02/18 21:38 Albumin/Globulin Ratio 1.6 % 12/02/18 21:38 TSH 9.440 mlU/mL (0.270-4.200) H 12/04/18 13:04 Free T4 0.98 ng/dL (0.76-1.46) 12/04/18 13:04 Urine Color Swapna (Yellow) 12/03/18 01:57 Urine Turbidity Cloudy (Clear) 12/03/18 01:57 Urine pH 7.0 (5.0-7.0) 12/03/18 01:57 Ur Specific [place] 1.018 (1.003-1.030) 12/03/18 01:57 Urine Protein <15 mg/dl mg/dL (Negative) 12/03/18 01:57 Urine Glucose (UA) Neg mg/dL (Negative) 12/03/18 01:57 Urine Ketones Tr mg/dL (Negative) 12/03/18 01:57 Urine Blood Neg (Negative) 12/03/18 01:57 Urine Nitrite Neg (Negative) 12/03/18 01:57 Urine Bilirubin Neg (Negative) 12/03/18 01:57 Urine Urobilinogen 4.0 mg/dL (<2.0) 12/03/18 01:57 Ur Leukocyte Esterase Neg (Negative) 12/03/18 01:57 Urine WBC (Auto) 8.0 /HPF (0.0-6.0) H 12/03/18 01:57 Urine RBC (Auto) 1.0 /HPF (0.0-6.0) 12/03/18 01:57 U Epithel Cells (Auto) 1.0 /HPF (0-13.0) 12/03/18 01:57 Urine Bacteria (Auto) 3+ /HPF (Negative) 12/03/18 01:57 Urine WBC Clumps 2+ /HPF 12/03/18 01:57 Hyaline Casts 4 /LPF 12/03/18 01:57 Urine Mucus 1+ /HPF 12/03/18 01:57 Urine Yeast (Budding) 3+ /HPF 12/03/18 01:57 Active Medications - Current Medications Current Medications: Generic Name Dose Route Start Last Admin Trade Name Freq PRN Reason Stop Dose Admin Acetaminophen 650 mg 12/03/18 02:40 Tylenol PO Q4H PRN Pain MILD(1-3)/Fever >100.5/RUFFIN Apixaban 5 mg 12/04/18 10:00 12/05/18 09:19 Eliquis PO 5 mg BID GREGORIO Administration Protocol Clonazepam 1 mg 12/04/18 09:49 Klonopin PO Q6HR PRN Anxiety Famotidine 20 mg 12/03/18 03:00 12/05/18 09:19 Pepcid IV 20 mg BID GREGORIO Administration Hydromorphone HCl 1 mg 12/03/18 02:40 12/04/18 05:49 Dilaudid IV 1 mg Q3H PRN Administration Pain , Severe (7-10) Levofloxacin/Dextrose 750 mg in 150 mls @ 100 mls/hr 12/03/18 10:00 12/05/18 09:23 Levaquin 750mg/150ml IV 100 mls/hr Q24HR GREGORIO Administration Protocol Metronidazole 500 mg in 100 mls @ 100 mls/hr 12/03/18 06:00 12/05/18 05:13 Flagyl 500 Mg/100 Ml IV 100 mls/hr Q8HR GREGORIO Administration Protocol Metoprolol Tartrate 25 mg 12/04/18 14:00 12/05/18 09:20 Lopressor PO 25 mg TID GREGORIO Administration Ondansetron HCl 4 mg 12/03/18 02:40 12/03/18 11:48 Zofran IV 4 mg Q6H PRN Administration Nausea And Vomiting Oxycodone/Acetaminophen 1 tab 12/03/18 02:40 Percocet 5/325 PO Q4H PRN Pain, Moderate (4-6) Promethazine HCl 25 mg 12/03/18 02:40 Phenergan NE Q6H PRN N/V IF NPO AND NO IV ACCESS Sodium Chloride 10 ml 12/03/18 10:00 12/05/18 09:22 Sodium Chloride Flush Syringe 10 Ml IV 10 ml BID GREGORIO Administration Sodium Chloride 10 ml 12/03/18 02:40 Sodium Chloride Flush Syringe 10 Ml IV PRN PRN LINE FLUSH Thyroid 60 mg 12/05/18 06:00 12/05/18 05:13 Thyroid,Pork PO 60 mg DAILY GREGORIO Administration Zolpidem Tartrate 5 mg 12/03/18 02:40 12/04/18 22:47 Ambien PO 5 mg QHS PRN Administration Insomnia
--- NOTE | 2018-12-05 11:15 | Progress Note ---
Assessment and Plan Pt converted to SR overnight. Currently stable cardiac status. Pt may discharge home from cardiology standpoint on current cardiac regimen. Recommend pt follow up with Dr. Kothari within 1-2 weeks of hospital discharge ([phone]). The patient has been seen in conjunction with Dr. Gautam who agrees with the assessment and plan of care. - Patient Problems (1) Paroxysmal atrial fibrillation with RVR Current Visit: Yes Status: Acute (2) Abdominal pain Current Visit: Yes Status: Acute (3) Constipation Current Visit: Yes Status: Acute (4) Diverticulitis Current Visit: Yes Status: Acute (5) HTN (hypertension) Current Visit: Yes Status: Chronic (6) Hyperlipidemia Current Visit: Yes Status: Chronic (7) History of hypothyroidism Current Visit: Yes Status: Chronic Subjective Date of service: 12/05/18 Principal diagnosis: AFib RVR Interval history: pt resting in bed, states she is feeling better today. converted to SR overnight. Objective Last Vital Signs Temp 97.9 F 12/05/18 08:53 Pulse 68 12/05/18 09:20 Resp 18 12/05/18 08:53 BP 130/74 12/05/18 09:20 Pulse Ox 96 12/05/18 08:53 - Physical Examination General: No Apparent Distress HEENT: Positive: PERRL, Normocephaly, Mucus Membranes Moist Neck: Positive: neck supple, trachea midline Cardiac: Positive: Reg Rate and Rhythm, S1/S2 Lungs: Positive: Decreased Breath Sounds Neuro: Positive: Grossly Intact Abdomen: Negative: Tender Skin: Negative: Rash, Wound Musculoskeletal: No Pain Extremities: Absent: edema - Imaging and Cardiology EKG: report reviewed, image reviewed Echo: report reviewed (01/2018 showed EF 55-60%, mild LVH, mild AR, RVSP 32mmHg.) Cardiac cath: report reviewed (09/25/2018 showed normal coronaries, EF 55-60%. )
[2018-12-05 17:36] VITALS: BP 130/80
== END 2018-12-05 16:00 | disposition home or self-care (01) ==
LOC: ED 20:50 → 4A 12-03 02:40
PROVIDERS: ADMIT Internal Medicine; ATTEND Internal Medicine
DX: K57.92 Diverticulitis of intestine, part unspecified, without perforation or abscess without bleeding (principal); N39.0 Urinary tract infection, site not specified; I10 Essential (primary) hypertension; R73.9 Hyperglycemia, unspecified; E03.9 Hypothyroidism, unspecified; E78.5 Hyperlipidemia, unspecified; K21.9 Gastro-esophageal reflux disease without esophagitis; I48.0 Paroxysmal atrial fibrillation; K59.00 Constipation, unspecified; Z87.891 Personal history of nicotine dependence; Z79.899 Other long term (current) drug therapy
CPT/HCPCS: 36415; 74176; 80048; 80053; 81001; 82962; 83036; 83735; 84439; 84443; 85025; 87086; 90686; 93005; 93010; 96365; 96366; 96367; 96368; 96375; 96376; 99284; G0378; J0360; J1170; J1956; J2270; J2405; J2543